=== PATIENT | male | born 1980 | race Caucasian/White ===

== ENCOUNTER 2016-10-22 15:14 | Emergency (ER) | payer BC ==
[2016-10-22 15:28] VITALS: BP 117/72
--- NOTE | 2016-10-22 15:51 | UC ---
Laceration HPI - History Of Current Complaint Chief Complaint: UCLaceration Stated Complaint: RIGHT HAND LACERATION Hx Obtained From: Patient Laceration Location: Hand - right hand got caught in a trailer hitch. Mechanism Of Injury: Blunt Trauma - between trailer hit Onset/Duration: Sudden Onset, Still Present Aggravating Factors: Movement Related History: Dominant Hand Right - Allergies/Home Medications Allergies/Adverse Reactions: Allergies Allergy/AdvReac Type Severity Reaction Status Date / Time No Known Allergies Allergy Verified 10/22/16 15:21 Home Medications: Home Medications NK [No Home Medications Reported] 10/22/16 [History Confirmed 10/22/16] PMH/Surg Hx/FS Hx/Imm Hx Cardiovascular History Of: Denies: Hypertension Respiratory History Of: Denies: Asthma - Surgical History Surgical History: None - Family History Known Family History: Positive: Diabetes Negative: Cardiac Disease, Hypertension - Social History Occupation: Employed Full-time Lives: Alone Alcohol Use: Daily Alcohol Amount: beer 2-3 daily Substance Use Type: None Smoking Status (MU): Heavy Every Day Tobacco Smoker Type: Cigarettes Amount Used/How Often: 1 pack daily - Immunization History Most Recent Tetanus Shot: unknown Review of Systems Skin: Other - open wound All Other Systems Reviewed And Are Negative: Yes Physical Exam Triage Information Reviewed: Yes Appearance: Well-Appearing, No Pain Distress, Well-Nourished Vital Signs: Initial Vital Signs Temp 98.5 F 10/22/16 15:22 Pulse 72 10/22/16 15:22 Resp 16 10/22/16 15:22 BP 117/72 10/22/16 15:22 Pulse Ox 100 10/22/16 15:22 Vital Signs Reviewed: Yes Eyes: Positive: Conjunctiva Clear Neck exam: Normal Respiratory Exam: Normal Cardiovascular Exam: Normal Musculoskeletal: Positive: Strength Intact, ROM Intact Neurological Exam: Normal - sensation intact. Psychological Exam: Normal Skin: Positive: Other - open wound right hand Laceration Repair - Laceration Repair 1 Description: Linear - over the right 3rd MCP dorsal. Laceration Size After Repair: Length (cm) - 2.4 Modified For Repair: Yes - abraded skin trimmed off Type Injection: Local Anesthesia Used: 1.0% Lido Additive Used (in ml): Epi Cleansing Completed Via Routine Prep: Yes Irrigation With Pressure Irrigation Device: Yes Closure Material: Sutures Closure Method: Multilayer Suture Of: Skin - 8 4-0 nylon running suture, SQ - #3 simple interrupted vicryl 4-0 Suture Type: Nylon - 4-0, Vicryl - 4-0 2 Description: Stellate Laceration Size After Repair: Length (cm) - 0.5 Modified For Repair: No Type Injection: Local Anesthesia Used: 1.0% Lido Additive Used (in ml): Epi Cleansing Completed Via Routine Prep: Yes Irrigation With Pressure Irrigation Device: Yes Closure Material: Sutures Closure Method: Single Layer Suture Of: Skin - # 4-0 nylon figure of eight. Suture Type: Nylon - 4-0 Laceration Course/Dx - Differential Dx - Laceration/Wound Differental Diagnoses: Abrasion, Avulsion, Laceration Provider Diagnoses: Laceration right hand. Discharge - Discharge Plan Condition: Stable Disposition: HOME Patient Education Materials: Laceration (ED), Finger Laceration (ED) Additional Instructions: Follow up suture removal in 10 days. Keep covered and use antibiotic ointment twice a day to help healing. You may get it wet and shower tonight. Try to avoid heavy lifting.
[2016-10-22] MEDS ORDERED: Lidocaine 1% MPF wEPI 200,000* 30 ML SDV ONE (16:04)
--- NOTE | 2016-10-22 16:09 | RAD ---
INDICATION: Laceration over third metacarpal after crush injury. COMPARISON: None. TECHNIQUE: 4 views of the right hand were obtained. FINDINGS: The adequately corticated bones are in normal alignment. No significant focal osseous abnormality or fracture is seen. Joint spaces appear maintained. On the oblique view of the image there is subcutaneous gas overlying the palmar and radial aspect of the right middle finger proximal phalanx. No subcutaneous foreign body is visualized. IMPRESSION: Soft tissue injury involving the right middle finger as described above without identification of underlying fracture or subcutaneous foreign body. If the patient's symptoms persist, follow-up imaging is recommended.
[2016-10-22] MEDS ORDERED: Tetan/Diph/Pertus SYR(Tdap)* 0.5 ML SYR(BOOSTRIX) use SYR IM ONE (16:58)
== END 2016-10-22 17:13 | disposition home or self-care (01) ==
LOC: UCCORT 15:14
DX: S61.411A Laceration without foreign body of right hand, initial encounter (principal); W23.0XXA Caught, crushed, jammed, or pinched between moving objects, initial encounter; Y93.9 Activity, unspecified; Y92.9 Unspecified place or not applicable; Z23 Encounter for immunization; F17.210 Nicotine dependence, cigarettes, uncomplicated
CPT/HCPCS: 12001; 12002; 12031; 12041; 90471; 90715; 99202; G0463; J2001

== ENCOUNTER 2016-11-01 16:34 | Emergency (ER) | payer BC | END 2016-11-01 17:07 | disposition left against medical advice (07) | LOC: UCCORT 16:34 | DX: Z48.02 Encounter for removal of sutures (principal); Z53.21 Procedure and treatment not carried out due to patient leaving prior to being seen by health care provider ==

== ENCOUNTER 2018-12-26 13:52 | Emergency (ER) | payer BC ==
[2018-12-26 14:47] VITALS: BP 124/50
--- NOTE | 2018-12-26 15:01 | ED ---
Skin Complaint - HPI Summary HPI Summary: 38 yr old male with the complaint of tick bite to the right upper back. Tick was removed on Monday by his girlfriend. He has been having some pain over the area of the bite with mild redness immediately around the bite. No fever or chills. No other complaints. Symptoms are moderate and worse if he lays on the bite area. - History of Current Complaint Chief Complaint: UCSkin Time Seen by Provider: 12/26/18 14:49 Stated Complaint: TICK BITE Pain Intensity: 0 - Allergy/Home Medications Allergies/Adverse Reactions: Allergies Allergy/AdvReac Type Severity Reaction Status Date / Time No Known Allergies Allergy Verified 12/26/18 14:47 PMH/Surg Hx/FS Hx/Imm Hx Endocrine/Hematology History: Denies: Hx Diabetes, Hx Thyroid Disease Cardiovascular History: Denies: Hx Hypertension Respiratory History: Denies: Hx Asthma, Hx Chronic Obstructive Pulmonary Disease (COPD) GI History: Denies: Hx Ulcer Infectious Disease History: No Infectious Disease History: Denies: Hx Hepatitis, Hx Human Immunodeficiency Virus (HIV), Traveled Outside the in Last 30 Days - Family History Known Family History: Positive: Diabetes Negative: Cardiac Disease, Hypertension - Social History Alcohol Use: Occasionally Alcohol Amount: beer 2-3 daily Substance Use Type: Reports: None Smoking Status (MU): Heavy Every Day Tobacco Smoker Type: Cigarettes Amount Used/How Often: 1 pack daily Review of Systems Constitutional: Negative Positive: Other - tick bite All Other Systems Reviewed And Are Negative: Yes Physical Exam Triage Information Reviewed: Yes Vital Signs On Initial Exam: Initial Vitals Temp Pulse Resp BP Pulse Ox 99.0 F 80 18 124/50 100 12/26/18 14:42 12/26/18 14:42 12/26/18 14:42 12/26/18 14:42 12/26/18 14:42 Vital Signs Reviewed: Yes Appearance: Positive: Well-Appearing, No Pain Distress Skin: Positive: Warm, Other - there is about 1.5 cm of redness to the area of the tick bite on his upper back. No bulls eye, no drainage from the bite. It is a tender to palpation. Head/Face: Positive: Normal Head/Face Inspection Eyes: Positive: EOMI ENT: Positive: Normal ENT inspection Neck: Positive: Nontender Respiratory/Lung Sounds: Positive: Clear to Auscultation, Breath Sounds Present Cardiovascular: Positive: RRR. Negative: Murmur Abdomen Description: Negative: Distended Musculoskeletal: Positive: Strength/ROM Intact Neurological: Positive: Sensory/Motor Intact, Alert, Oriented to Person Place, Time, CN Intact II-III, Speech Normal Psychiatric: Positive: Normal Diagnostics - Vital Signs Vital Signs Temp Pulse Resp BP Pulse Ox 12/26/18 14:42 99.0 F 80 18 124/50 100 - Laboratory Lab Statement: Any lab studies that have been ordered have been reviewed, and results considered in the medical decision making process. Course/Dx - Course Course Of Treatment: 38 yr old with tick bite and localized redness from the bite with tenderness. WIll rx with doxy. No clear erythema migrans. - Diagnoses Provider Diagnoses: Tick bite Discharge - Sign-Out/Discharge Documenting (check all that apply): Patient Departure All imaging exams completed and their final reports reviewed: No Studies - Discharge Plan Condition: Good Disposition: HOME Prescriptions: Doxycycline Monohydrate 100 mg PO BID #28 capsule Patient Education Materials: Tick Bite (ED) Referrals: No Primary Care Phys,NOPCP [Primary Care Provider] - [facility] [place] [facility] [Outside] - Billing Disposition and Condition Condition: GOOD Disposition: Home
== END 2018-12-26 15:01 | disposition home or self-care (01) ==
LOC: UCCORT 13:52
DX: S20.461A Insect bite (nonvenomous) of right back wall of thorax, initial encounter (principal); W57.XXXA Bitten or stung by nonvenomous insect and other nonvenomous arthropods, initial encounter; F17.210 Nicotine dependence, cigarettes, uncomplicated
CPT/HCPCS: 99212; G0463